=== PATIENT | male | born 1970 | race Two or more races ===

== ENCOUNTER 2020-07-21 07:44 | Outpatient (CLI) | payer OTHER | END 2020-07-21 23:59 | disposition home or self-care (01) | LOC: LAB 07:44 | PROVIDERS: ATTEND Orthopaedic Surgery | DX: Z01.812 Encounter for preprocedural laboratory examination (principal); Z20.822 Contact with and (suspected) exposure to COVID-19; M75.01 Adhesive capsulitis of right shoulder ==

== ENCOUNTER 2020-07-22 09:17 | Outpatient (CLI) | payer OTHER ==
[2020-07-22 10:46] LABS: BASOPHILS % (AUTO) 0.6 % (0.0-2.0); EOSINOPHILS # (AUTO) 0.3 K/uL (0.0-0.7); EOSINOPHILS % (AUTO) 5.1 % (0.0-7.0); HEMATOCRIT 42.4 % (36.7-47.1); HEMOGLOBIN 14.7 g/dL (12.5-16.3); LYMPHOCYTES # (AUTO) 1.9 K/uL (20.0-40.0); LYMPHOCYTES % (AUTO) 35.3 % (20.5-51.5); MEAN CORPUSCULAR HEMOGLOBIN 32.5 uug (23.8-33.4); MEAN CORPUSCULAR HGB CONC 35 g/dL (32.5-36.3); MEAN CORPUSCULAR VOLUME 94.1 fL (73.0-96.2); MONOCYTES # (AUTO) 0.5 K/uL (2.0-10.0); MONOCYTES % (AUTO) 9.9 % (0.0-11.0); NEUTROPHILS # (AUTO) 2.6 K/uL (1.8-8.9); NEUTROPHILS % (AUTO) 49.1 % (38.5-71.5); PLATELET COUNT (AUTO) 182 K/uL (152-348); RED BLOOD CELL COUNT(AUTO) 4.51 MIL/uL (4.06-5.63); WHITE BLOOD COUNT (AUTO) 5.3 K/uL (3.6-10.2)
[2020-07-22 10:47] LABS: *BILIRUBIN,URIN NEGATIVE (NEGATIVE); *CLARITY,URINE CLEAR (CLEAR); *COLOR,URINE YELLOW (YELLOW); *KETONES,URINE NEGATIVE (NEGATIVE); *UROBILINOGEN,URINE 0.2 E.U./dl (NORMAL); LEUKOCYTE ESTERASE ,URINE NEGATIVE (NEGATIVE); NITRITE, URINE NEGATIVE (NEGATIVE); PH,URINE 5.5 (5.0-8.0); UGLUCOSE NEGATIVE (NEGATIVE)
[2020-07-22 10:53] LABS: *BLOOD, URINE TRACE (NEGATIVE); POTASSIUM 4.3 mmol/L (3.5-5.1)
[2020-07-22 10:59] LABS: BILIRUBIN,TOTAL 0.4 mg/dL (0.2-1.0); TOTAL PROTEIN, SERUM 7.5 g/dL (6.4-8.2)
[2020-07-22 12:03] LABS: BACTERIA,URINE NONE SEEN /HPF (NONE SEEN); RBC,URINE 0-3 /HPF (0-3); SQUAMOUS EPITHELIAL CELL,UR FEW /HPF (NONE SEEN); WBC,URINE 0-3 /HPF (0-3)
== END 2020-07-22 23:59 | disposition home or self-care (01) ==
LOC: LAB 09:17
PROVIDERS: ATTEND Internal Medicine
DX: Z01.818 Encounter for other preprocedural examination (principal); M19.111 Post-traumatic osteoarthritis, right shoulder; M75.91 Shoulder lesion, unspecified, right shoulder
CPT/HCPCS: 36415; 71045; 85025; 85730; 93005

== ENCOUNTER 2020-07-24 08:01 | Day surgery (SDC) | payer OTHER ==
[~2020-07-24 08:01] MED LIST: POLYMYXIN B SULFATE 500,000 UNITS, BACITRACIN 50,000 UNITS, NORMAL SALINE 20 ML MC ONE
[2020-07-24] MEDS ORDERED: DEXAMETHASONE SOD PHOSPHATE 4 MG INJ IV ONE (08:02)
[2020-07-24] MEDS ORDERED: LIDOCAINE-MPF 2% 5 ML VIAL IJ ONE (08:02)
[2020-07-24] MEDS ORDERED: IV NORMAL SALINE 1000 ML BAG IV ONE (08:02)
[2020-07-24] MEDS ORDERED: GLYCOPYRROLATE 0.2 MG/ML VIAL IJ ONE (08:02)
[2020-07-24] MEDS ORDERED: PROPOFOL 200 MG/20 ML BOTTLE IV ONE (08:02)
[2020-07-24] MEDS ORDERED: NEOSTIGMINE METHYLSULFATE 10 MG/10 ML VIAL IM ONE (08:02)
[2020-07-24] MEDS ORDERED: BUPIVACAINE/EPI PF 0.25% 30 ML VIAL ONE (09:27)
[2020-07-24] MEDS ORDERED: BUPIVACAINE/EPI PF 0.5% 10 ML VIAL ONE ×2 (09:28→09:31)
[2020-07-24] MEDS ORDERED: FENTANYL CITRATE 100 MCG/2 ML AMPUL ONE (09:30)
[2020-07-24] MEDS ORDERED: MIDAZOLAM HCL 2 MG/2 ML VIAL ONE (09:31)
[2020-07-24] MEDS ORDERED: GLYCOPYRROLATE 0.2 MG/ML VIAL ONE (11:10)
[2020-07-24] MEDS ORDERED: HYDROCODONE/APAP 5-325MG TABLET ONE (13:25)
[2020-07-24] MEDS ORDERED: HYDROCODONE/APAP 5-325MG TABLET PO PRN (13:30)
== END 2020-07-24 15:01 | disposition home or self-care (01) ==
LOC: DS 08:01
PROVIDERS: ATTEND Orthopaedic Surgery
DX: M75.41 Impingement syndrome of right shoulder (principal); M75.101 Unspecified rotator cuff tear or rupture of right shoulder, not specified as traumatic; M75.01 Adhesive capsulitis of right shoulder; E11.9 Type 2 diabetes mellitus without complications; M19.90 Unspecified osteoarthritis, unspecified site; Z79.899 Other long term (current) drug therapy; Z98.890 Other specified postprocedural states; Z72.89 Other problems related to lifestyle
CPT/HCPCS: 23120; 23410; 23415; J1100; J2250; J3010; J3490 ×6; J7120; A4565; A4649; A4663; J7030